=== PATIENT | male | born 1950 | race Caucasian/White ===

== ENCOUNTER 2019-11-19 15:25 | Emergency (ER) | payer MEDICARE, OTHER ==
[2019-11-19] MEDS ORDERED: Aspirin 81 MG Tab.Chew PO ONE (15:35)
--- NOTE | 2019-11-19 15:48 | EDM.PDOC ---
ED HPI GENERAL MEDICAL PROBLEM - General Chief Complaint: Chest Pain Stated Complaint: CHEST PAIN Time Seen by Provider: 11/19/19 15:32 - History of Present Illness INITIAL COMMENTS - FREE TEXT/NARRATIVE: woke up at 1030 am with 7-8/10 left side Chest pain, describes it as an ache, it has decreased some to 5/10, it has been constant. No radiation. No associating symptoms.Hx of heavy smoker, DM, COPD, does not use home oxygen as ordered, family cardiac problems. He took 1.5 full strength ASA at 1030 to help his pain. Onset: Today, Sudden Onset Date: 11/19/19 Onset Time: 10:30 Location: Reports: Chest Quality: Reports: Ache Severity: Moderate Improves with: Reports: None Worsens with: Reports: None Associated Symptoms: Reports: No Other Symptoms Chest Pain Score (Numeric/FACES): 3 - Related Data Allergies Allergy/AdvReac Type Severity Reaction Status Date / Time No Known Allergies Allergy Verified 11/19/19 16:12 Home Meds: Home Meds Aspirin 0.5 tab PO DAILY 11/19/19 [History] Rosuvastatin Calcium 20 mg PO Q48H 11/19/19 [History] atenoloL [Atenolol] 100 mg PO DAILY 11/19/19 [History] hydroCHLOROthiazide [Hydrochlorothiazide] 12.5 mg PO DAILY 11/19/19 [History] lisinopriL [Lisinopril] 30 mg PO DAILY 11/19/19 [History] metFORMIN HCl [Metformin HCl] 1,000 mg PO BID 11/19/19 [History] Past Medical History Cardiovascular History: Reports: High Cholesterol, Hypertension, SOB on Exertion Respiratory History: Reports: COPD, SOB Endocrine/Metabolic History: Reports: Diabetes, Type II Social & Family History - Tobacco Use Smoking Status *Q: Current Every Day Smoker Tobacco Use Within Last Twelve Months: Cigarettes Years of Tobacco use: 40 - Alcohol Use Alcohol Use History: Yes Days Per Week of Alcohol Use Comment: 2-3 drinks per week, history of heavy alocohol use in the past. - Recreational Drug Use Recreational Drug Use: No ED ROS GENERAL - Review of Systems Review Of Systems: See Below Constitutional: Denies: No Symptoms, Fever, Chills, Malaise Respiratory: Reports: No Symptoms, Shortness of Breath, Cough (chronic cough hx of COPD and smoker, small amount of clear phelm. ), Other (chronic SOB, nothing new for SOB). Denies: Wheezing Cardiovascular: Reports: Chest Pain. Denies: Palpitations, Syncope Endocrine: Reports: No Symptoms. Denies: Fatigue GI/Abdominal: Reports: No Symptoms. Denies: Abdominal Pain, Nausea, Vomiting Musculoskeletal: Reports: No Symptoms. Denies: Back Pain Skin: Reports: No Symptoms Neurological: Reports: No Symptoms. Denies: Dizziness, Headache Hematologic/Lymphatic: Reports: Easy Bleeding (on ASA) ED EXAM, GENERAL - Physical Exam Exam: See Below Exam Limited By: No Limitations General Appearance: Alert, WD/WN, No Apparent Distress Throat/Mouth: Normal Inspection, Normal Lips Head: Atraumatic, Normocephalic Neck: Normal Inspection, Supple Respiratory/Chest: No Respiratory Distress Cardiovascular: Normal Peripheral Pulses, Regular Rate, Rhythm, No Murmur, No Rub GI/Abdominal: Normal Bowel Sounds, Soft, Non-Tender, No Abnormal Bruit Back Exam: Normal Inspection Extremities: Normal Inspection, Normal Range of Motion, Non-Tender, Normal Capillary Refill. No: Meg's Sign, Leg Pain Neurological: Alert, Oriented, Normal Cognition, Normal Gait Psychiatric: Normal Affect, Normal Mood Skin Exam: Warm, Dry, Intact. No: Diaphoretic EKG INTERPRETATION EKG Date: 11/19/19 Time: 15:33 (lot of artifact on initial EKG, it was repeated at 1610) Rhythm: NSR Abell: Normal P-Wave: Present QRS: RBBB (incomplete in leads II,III,aVL,aVF) ST-T: Normal QT: Normal Comparison: NA - No Prior EKG Course - Vital Signs Last Recorded V/S: Last Vital Signs Temp 97.2 F 11/19/19 15:51 Pulse 65 11/19/19 17:33 Resp 16 11/19/19 17:33 BP 140/57 L 11/19/19 17:33 Pulse Ox 96 11/19/19 17:33 - Orders/Labs/Meds Labs: Laboratory Tests 11/19/19 11/19/19 11/19/19 Range/Units 15:40 15:40 15:40 WBC 15.19 H (5.00-10.00) 10^3/uL RBC 4.96 (4.50-6.00) 10^6/uL Hgb 14.8 (13.0-17.0) g/dL Hct 44.3 (40.0-52.0) % MCV 89.3 (82.0-92.0) fL MCH 29.8 (27.0-31.0) pg MCHC 33.4 (32.0-36.0) g/dL RDW 12.6 (11.5-14.5) % Plt Count 225 (150-400) 10^3/uL MPV 9.3 (7.4-10.4) fL Immature Gran % (Auto) 0.1 (0.0-5.0) % Neut % (Auto) 80.4 H (50.0-70.0) % Lymph % (Auto) 9.0 L (20.0-40.0) % [place] % (Auto) 9.3 H (2.0-8.0) % Eos % (Auto) 0.8 L (1.0-3.0) % Baso % (Auto) 0.4 (0.0-1.0) % Neut # (Auto) 12.22 H (2.50-7.00) 10^3/uL Lymph # (Auto) 1.36 (1.00-4.00) 10^3/uL [place] # (Auto) 1.41 H (0.10-0.80) 10^3/uL Eos # (Auto) 0.12 (0.10-0.30) 10^3/uL Baso # (Auto) 0.06 (0.00-0.10) 10^3/uL Immature Gran # (Auto) 0.02 (0.00-0.50) 10^3/uL PT 10.1 (9.2-11.2) SEC INR 1.0 (0.9-1.1) APTT (22.8-31.4) SEC D-Dimer, Quantitative (<400) ng/mL Sodium 136 (136-145) mmol/L Potassium 3.8 (3.3-5.3) mmol/L Chloride 98 (98-115) mmol/L Carbon Dioxide 29.7 (21.0-32.0) mmol/L Anion Gap 12.1 (5-15) mmol/L BUN 8 (6-25) mg/dL Creatinine 0.74 (0.51-1.17) mg/dL Est Cr Clr Drug Dosing 88.58 mL/min Estimated GFR (MDRD) > 60 mL/min Glucose 203 H (75 - 99) mg/dL Calcium 8.9 (8.7-10.3) mg/dL Total Bilirubin 0.4 (0.2-1.0) mg/dL AST 16 (15-37) U/L ALT 13 (12-78) U/L Alkaline Phosphatase 66 (46-116) IU/L Troponin I 0.09 H* (0.00-0.070) ng/mL B-Natriuretic Peptide (0-100) pg/mL Total Protein 7.5 (6.4-8.2) g/dL Albumin 3.58 (3.00-4.80) g/dL 11/19/19 11/19/19 11/19/19 Range/Units 15:40 16:40 16:40 WBC (5.00-10.00) 10^3/uL RBC (4.50-6.00) 10^6/uL Hgb (13.0-17.0) g/dL Hct (40.0-52.0) % MCV (82.0-92.0) fL MCH (27.0-31.0) pg MCHC (32.0-36.0) g/dL RDW (11.5-14.5) % Plt Count (150-400) 10^3/uL MPV (7.4-10.4) fL Immature Gran % (Auto) (0.0-5.0) % Neut % (Auto) (50.0-70.0) % Lymph % (Auto) (20.0-40.0) % [place] % (Auto) (2.0-8.0) % Eos % (Auto) (1.0-3.0) % Baso % (Auto) (0.0-1.0) % Neut # (Auto) (2.50-7.00) 10^3/uL Lymph # (Auto) (1.00-4.00) 10^3/uL [place] # (Auto) (0.10-0.80) 10^3/uL Eos # (Auto) (0.10-0.30) 10^3/uL Baso # (Auto) (0.00-0.10) 10^3/uL Immature Gran # (Auto) (0.00-0.50) 10^3/uL PT (9.2-11.2) SEC INR (0.9-1.1) APTT 26.5 (22.8-31.4) SEC D-Dimer, Quantitative < 100 (<400) ng/mL Sodium (136-145) mmol/L Potassium (3.3-5.3) mmol/L Chloride (98-115) mmol/L Carbon Dioxide (21.0-32.0) mmol/L Anion Gap (5-15) mmol/L BUN (6-25) mg/dL Creatinine (0.51-1.17) mg/dL Est Cr Clr Drug Dosing mL/min Estimated GFR (MDRD) mL/min Glucose (75 - 99) mg/dL Calcium (8.7-10.3) mg/dL Total Bilirubin (0.2-1.0) mg/dL AST (15-37) U/L ALT (12-78) U/L Alkaline Phosphatase (46-116) IU/L Troponin I (0.00-0.070) ng/mL B-Natriuretic Peptide 45 (0-100) pg/mL Total Protein (6.4-8.2) g/dL Albumin (3.00-4.80) g/dL Meds: Medications Discontinued Medications Generic Name Dose Route Start Last Admin Trade Name Freq PRN Reason Stop Dose Admin Aspirin 324 mg 11/19/19 15:35 11/19/19 15:50 Aspirin PO 11/19/19 15:36 Not Given ONETIME ONE Heparin Sodium (Porcine) 4,000 units 11/19/19 17:13 11/19/19 20:18 Heparin Sodium IVPUSH 11/19/19 17:14 Not Given .BOLUS ONE Heparin Sodium (Porcine) 4,000 units 11/19/19 17:10 11/19/19 17:15 Heparin Sodium IVPUSH 11/19/19 17:11 4,000 units ONETIME ONE Administration Heparin Sodium/Dextrose 250 mls @ 1,020.58 mls/hr 11/19/19 17:15 IV TITRATE ROEL Protocol 1,000 UNITS/KG/HR Heparin Sodium/Dextrose 250 mls @ 10 mls/hr 11/19/19 17:09 08/17/20 17:24 IV 11/20/19 18:08 1,000 units/hr NOW STA 10 mls/hr Administration Protocol 1,000 UNITS/HR Sodium Chloride 20 mls @ 20 mls/hr 11/19/19 18:00 Normal Saline IV ASDIRECTED ROEL Sodium Chloride 1,000 mls @ 20 mls/hr 11/19/19 18:00 Normal Saline IV ASDIRECTED ROEL Sodium Chloride Confirm 11/19/19 17:52 11/19/19 20:14 Normal Saline Administered 11/19/19 17:53 Not Given Dose 1,000 mls @ as directed .ROUTE .STK-MED ONE Nitroglycerin 0.4 mg 11/19/19 15:48 11/19/19 16:17 Nitrostat SL 0.4 mg Q5M PRN Administration Chest Pain - Re-Assessments/Exams Free Text/Narrative Re-Assessment/Exam: 11/19/19 15:51- labs drawn, xray at beside, EKg was completed at 1533. no acute signs of STEMI 11/19/19 16:26- received positive troponin level from lab, trop 0.09, other labs still pending. EKG was repeated at 1610. no changes 11/19/19 16:47- d dimer neg. CP is 1/10 after second dose, very mild ache, when he doesn't think of it, its gone. I visited with oncall PCP, Dr. Banks, due to elevated troponin, high risk for ACS due to his history and clinical prese ntation, patient referred to [facility] for further expert evaluation and management. Patient agrees with transfer. i called one call, gave report to hospitalist at [facility]. Free Text/Narrative Re-Assessment/Exam: 11/19/19 16:27 second dose of nitro SL given, chest pain remains the same 1/10, compares it to a toothache, BP 147/70 HR 67. 11/19/19 17:19 discussed Rehan's case with accepting hospitalist at [facility], waiting on a bed before transfer, heparin bolus given 4,000 units and gtt started at 1,000 units per hour, no need to give ASA, patient took 1.5 tablets of 325 mg ASA, NS TKO, 2 L NC given, VSS, patient's pain is 1/10 mild dull ache left Chest, no associating symptoms. 11/19/19 17:43 received a room number now, EMS were notified, patient states ache is 2/10, like a "tooth ache". report was called to [facility]. Departure - Departure Time of Disposition: 17:05 (dc/ transfer to [facility]) Disposition: DC/Tfer to [facility] Preliminary Cause of *Q: Sepsis & Multi System Organ Failure Reason for Transfer *Q: Other Condition: Serious Clinical Impression: Chest pain, NSTEMI (non-ST elevated myocardial infarction) Referrals: Deana Butts MD [Primary Care Provider] - MLP Sign Off - Signature Requirements MLP Sign Off: Yes ED Communication - Discussed Case With (1) Discussed Case With (1): Other Provider Person/s Notified (1): Dr. Banks his PCP - Problem List & Annotations (1) Chest pain SNOMED Code(s): 10325925 Code(s): R07.9 - CHEST PAIN, UNSPECIFIED Status: Acute
--- NOTE | 2019-11-19 15:57 | CR ---
[id number] RAD/RAD Chest PA or AP 1V EXAM: RAD Chest PA or AP 1V INDICATION: CP. COMPARISON: July 10, 2019. DISCUSSION: Cardiomediastinal silhouette is normal in size and contour. No infiltrate, effusion, pneumothorax, or edema. IMPRESSION: No acute cardiopulmonary abnormality. Kain Gay DO 11/19/19 1556 Thank you for allowing us to participate in the care of your patient.
[2019-11-19] MEDS: Nitroglycerin 0.4 MG Tab.SL SL PRN ×2 (15:58→16:17)
[2019-11-19 16:22] LABS: ANION GAP 12.1 mmol/L (5-15); CHLORIDE,CL 98 mmol/L (98-115); SODIUM,NA 136 mmol/L (136-145)
[2019-11-19] MEDS ORDERED: Heparin Sodium/D5W 250 ML IV STA (17:09)
[2019-11-19] MEDS ORDERED: Heparin Sodium 5,000 Units/ML Vial IVPUSH ONE (17:10)
[2019-11-19] MEDS ORDERED: Heparin Sodium/D5W 250 ML IV SCH (17:15)
[2019-11-19] MEDS: Heparin Sodium 5,000 Units/ML Vial IVPUSH ONE ×2 (17:15→20:18)
[2019-11-19] MEDS ORDERED: Sodium Chloride 0.9% 1,000 ML ONE (17:52)
[2019-11-19] MEDS ORDERED: Sodium Chloride 0.9% 1,000 ML IV SCH (18:00)
[2019-11-19] MEDS ORDERED: Sodium Chloride 0.9% 20 ML IV SCH (18:00)
== END 2019-11-19 18:15 | disposition critical access hospital (66) ==
LOC: KA.ED 15:25
DX: I21.4 Non-ST elevation (NSTEMI) myocardial infarction (principal); I10 Essential (primary) hypertension; J44.9 Chronic obstructive pulmonary disease, unspecified; E11.9 Type 2 diabetes mellitus without complications; F17.210 Nicotine dependence, cigarettes, uncomplicated; Z79.82 Long term (current) use of aspirin; Z79.899 Other long term (current) drug therapy; I45.10 Unspecified right bundle-branch block
CPT/HCPCS: 36415; 71045; 80053; 83880; 84484; 85025; 85379; 85610; 85730; 93005; 96365; 96375; 99284; 99285-25; A9270-GY; J1644

== ENCOUNTER 2020-07-01 07:57 | Day surgery (SDC) | payer MEDICARE, OTHER ==
[2020-07-01] MEDS: Sodium Chloride 0.9% 10 ML Syringe FLUSH PRN (08:18)
[2020-07-01] MEDS: Lactated Ringers 1,000 ML IV SCH (08:18)
[2020-07-01] MEDS: Albuterol 0.083% 2.5 MG/3 ML Neb Soln NEB ONE (08:54)
[2020-07-01] MEDS ORDERED: Midazolam 1 MG/ML 2 ML SDV ONE (08:58)
[2020-07-01] MEDS ORDERED: Glycopyrrolate 0.2 MG/ML SDV ONE ×2 (08:58)
[2020-07-01] MEDS ORDERED: Propofol 200 MG/20 ML SDV ONE (08:58)
[2020-07-01] MEDS ORDERED: Lidocaine 2% 5 ML SDV ONE (09:03)
--- NOTE | 2020-07-01 09:12 | PCM.PN ---
- General Info Date of Service: 07/01/20 - Review of Systems Systems Review Comment:: 69-year-old male with history of upper abdominal pain here for EGD. He is medically stable to proceed today. His recent history and physical is reviewed and no significant changes are noted. I have discussed the proposed EGD with the patient. He agrees to proceed accepting risks. - Patient Data Vitals - Most Recent: Last Vital Signs Temp 96.7 F L 07/01/20 08:07 Pulse 58 L 07/01/20 09:02 Resp 18 07/01/20 08:07 BP 171/70 H 07/01/20 09:02 Pulse Ox 92 L 07/01/20 09:00 Weight - Most Recent: 99.79 kg Med Orders - Current: Current Medications Lactated Ringer's (Ringers, Lactated) 1,000 mls @ 50 mls/hr IV ASDIRECTED ROEL Last Admin: 07/01/20 08:18 Dose: 50 mls/hr Documented by: Sodium Chloride (Sodium Chloride 0.9% 10 Ml Syringe) 10 ml FLUSH Q8HR PRN PRN Reason: keep vein open Last Admin: 07/01/20 08:18 Dose: 10 ml Documented by: Discontinued Medications Albuterol (Albuterol 0.083% 2.5 Mg/3 Ml Neb Soln) 2.5 mg NEB ONETIME ONE Stop: 07/01/20 08:45 Last Admin: 07/01/20 08:54 Dose: 2.5 mg Documented by: Glycopyrrolate (Glycopyrrolate 0.2 Mg/Ml Sdv) Confirm Administered Dose 0.2 mg .ROUTE .STK-MED ONE Stop: 07/01/20 08:59 Glycopyrrolate (Glycopyrrolate 0.2 Mg/Ml Sdv) Confirm Administered Dose 0.4 mg .ROUTE .STK-MED ONE Stop: 07/01/20 08:59 Lidocaine (Lidocaine 2% 5 Ml Sdv) Confirm Administered Dose 5 ml .ROUTE .STK-MED ONE Stop: 07/01/20 09:04 Midazolam HCl (Midazolam 1 Mg/Ml 2 Ml Sdv) Confirm Administered Dose 2 mg .ROUTE .STK-MED ONE Stop: 07/01/20 08:59 Propofol (Propofol 200 Mg/20 Ml Sdv) Confirm Administered Dose 200 mg .ROUTE .STK-MED ONE Stop: 07/01/20 08:59 Sepsis Event Note - Focused Exam Vital Signs: Vital Signs Temp Pulse Resp BP Pulse Ox Pulse Ox 07/01/20 09:02 58 L 171/70 H 07/01/20 09:00 63 92 L 07/01/20 08:51 181/78 H 07/01/20 08:07 96.7 F L 72 18 199/79 H 92 L - Problem List Review Problem List Initiated/Reviewed/Updated: Yes - My Orders Last 24 Hours: My Active Orders 06/30/20 13:36 Resuscitation Status Routine 07/01/20 08:00 Peripheral IV Care [RC] . DIRECTED Nothing Per Oral Diet [DIET] Lactated Ringers [Ringers, Lactated] 1,000 ml IV ASDIRECTED Sodium Chloride 0.9% [Saline Flush] 10 ml FLUSH Q8HR PRN Peripheral IV Insertion Adult [OM.PC] Routine 07/01/20 08:30 Patient to Empty Bladder [RC] ASDIRECTED 07/01/20 09:00 Verify Patient Consent Obtain [RC] ASDIRECTED - Assessment Assessment:: Abdominal pain - Plan Plan:: EGD
--- NOTE | 2020-07-01 09:39 | PCM.OPNOTE ---
- General Post-Op/Procedure Note Date of Surgery/Procedure: 07/01/20 Operative Procedure(s): EGD with biopsy Findings: Normal-appearing esophagus stomach and duodenum Pre Op Diagnosis: Abdominal pain Post-Op Diagnosis: Same Anesthesia Technique: MAC Primary Surgeon: David Hill Pathology: Biopsies of stomach and duodenum EBL in mLs: 3 Complications: None Condition: Good
--- NOTE | 2020-07-01 11:36 | OR ---
DATE OF SURGERY: 07/01/2020 SURGEON: David Hill MD PREOPERATIVE DIAGNOSIS: Upper abdominal pain. POSTOPERATIVE DIAGNOSIS: Normal upper endoscopy. OPERATION PERFORMED: Esophagogastroduodenoscopy with biopsy. INDICATIONS FOR SURGERY: This 69-year-old male had an episode of severe upper abdominal pain several days ago. The pain has improved, although there is still mild soreness in this area. Diagnostic upper endoscopy is planned. FINDINGS: The lining of the patient's esophagus, stomach, and duodenum appeared normal during the exam. No visible signs of ulcers, inflammation, or anatomic variation was noted. DESCRIPTION OF PROCEDURE: The patient was taken to the operating room. He was given intravenous sedation and his throat was topically anesthetized. The Olympus gastroscope was then advanced through a mouth guard into the oral cavity. Under direct visualization, the scope was then carefully advanced down into the esophagus and then down through the esophagus, stomach, and into the duodenum where examination to the fourth portion was performed. Careful examination of the duodenum was performed and no abnormalities were noted. Random biopsies of the duodenal mucosa were taken. The scope was withdrawn back into the stomach where full examination including retroflexed examination of the fundus was performed. Random biopsies of the antrum were taken to rule out H pylori. The GE junction and esophagus were re-examined as the scope was removed, and after the scope had been withdrawn, the patient was taken from the operating room in satisfactory condition. ESTIMATED BLOOD LOSS: 3 mL. COMPLICATIONS: None. PROGNOSIS: Good. /[id number]/MODL
== END 2020-07-01 10:45 | disposition home or self-care (01) ==
LOC: KA.SDS 07:57
PROVIDERS: ATTEND Surgery
DX: K29.80 Duodenitis without bleeding (principal); K31.89 Other diseases of stomach and duodenum; F17.210 Nicotine dependence, cigarettes, uncomplicated; Z79.82 Long term (current) use of aspirin; Z79.899 Other long term (current) drug therapy; Z79.84 Long term (current) use of oral hypoglycemic drugs; Z98.890 Other specified postprocedural states
CPT/HCPCS: 00731; 88305; J2250; J2704; J3490; J7120; J7613-GY

== ENCOUNTER 2020-12-04 08:56 | Emergency (ER) | payer MEDICARE, OTHER ==
[2020-12-04] MEDS ORDERED: Albuterol/Ipratropium 3.0-0.5 MG/3 ML Neb Soln ONE (09:24)
--- NOTE | 2020-12-04 09:38 | EDM.PDOC ---
ED HPI GENERAL MEDICAL PROBLEM - General Stated Complaint: SOB,COUGH Time Seen by Provider: 12/04/20 09:21 Source of Information: Reports: Patient History Limitations: Reports: No Limitations - History of Present Illness INITIAL COMMENTS - FREE TEXT/NARRATIVE: Patient presents with dyspnea, chest pain and cough. He says the chest pain (low mid chest) has been 2-3 days and worst was last evening until [id number] this morning. He is actually feeling a lot better the last 4-5 hours. He mostly just feels like there is congestion in his lungs that needs to come up. He has COPD so always has dyspnea but it is worse last few days too. He has nebs and inhalers at home but doesn't use them. He had home oxygen for awhile but didn't use it so it was taken. He says how he feels now reminds him of "w alking pneumonia" he had 20 years ago and also the MT he had a year ago; had a stent at that time too. Denies pain in neck, jaw, arms. He has smoked for over 50 years and still smokes 4-5 cigarettes a day. - Related Data Allergies Allergy/AdvReac Type Severity Reaction Status Date / Time No Known Drug Allergies Allergy Other Verified 12/04/20 09:37 Home Meds: Home Meds Rosuvastatin Calcium 20 mg PO DAILY 11/19/19 [History] atenoloL [Atenolol] 100 mg PO DAILY 11/19/19 [History] hydroCHLOROthiazide [Hydrochlorothiazide] 12.5 mg PO DAILY 11/19/19 [History] metFORMIN HCl [Metformin HCl] 1,000 mg PO BID 11/19/19 [History] Aspirin [Aspirin EC] 81 mg PO DAILY 06/16/20 [History] Clopidogrel Bisulfate [Plavix] 75 mg PO DAILY 06/16/20 [History] Nitroglycerin 0.4 mg SL ASDIRECTED PRN 06/16/20 [History] [place]-3/DHA/Epa/Fish Oil [[place]-3 EC Softgel] 1,200 mg PO DAILY 06/16/20 [History] Ubidecarenone [Co Q-10] 1 tab PO ASDIRECTED 06/16/20 [History] Vitamin B Complex 1 tab PO DAILY 06/16/20 [History] lisinopriL [Lisinopril] 40 mg PO DAILY 06/16/20 [History] traMADol [Ultram] 50 mg PO Q6H PRN 06/30/20 [History] Fluticasone Propion/Salmeterol [Fluticasone-Salmeterol 250-50] 1 inh INH BID 12/04/20 [History] amLODIPine Besylate [Amlodipine Besylate] 5 mg PO DAILY 12/04/20 [History] Past Medical History HEENT History: Reports: None Cardiovascular History: Reports: High Cholesterol, Hypertension, SOB on Exertion Respiratory History: Reports: COPD, SOB Gastrointestinal History: Reports: None Genitourinary History: Reports: None Musculoskeletal History: Reports: None Neurological History: Reports: None Psychiatric History: Reports: None Endocrine/Metabolic History: Reports: Diabetes, Type II Hematologic History: Reports: None Immunologic History: Reports: None Oncologic (Cancer) History: Reports: None Dermatologic History: Reports: None - Infectious Disease History Infectious Disease History: Reports: Chicken Pox - Past Surgical History Head Surgeries/Procedures: Reports: None HEENT Surgical History: Reports: None Cardiovascular Surgical History: Reports: None Respiratory Surgical History: Reports: None GI Surgical History: Reports: Colonoscopy, EGD Male Surgical History: Reports: None Neurological Surgical History: Reports: None Musculoskeletal Surgical History: Reports: None Social & Family History - Caffeine Use Caffeine Use: Reports: Coffee Other Caffeine Use: 10 cups of coffee a day ED ROS GENERAL - Review of Systems Review Of Systems: See Below Constitutional: Denies: Fever, Weakness, Diaphoresis HEENT: Denies: Ear Pain, Throat Pain, Vision Change Respiratory: Reports: Shortness of Breath, Cough Cardiovascular: Reports: Chest Pain. Denies: Lightheadedness, Syncope GI/Abdominal: Denies: Abdominal Pain, Diarrhea, Nausea, Vomiting : Denies: Dysuria Musculoskeletal: Denies: Neck Pain, Shoulder Pain, Arm Pain, Back Pain Skin: Denies: Cyanosis, Jaundice, Mottled, Pallor, Diaphoresis Neurological: Denies: Confusion, Dizziness, Headache, Seizure, Syncope, Trouble Speaking, Difficulty Walking Psychiatric: Denies: Agitation, Anxiety ED EXAM, GENERAL - Physical Exam Exam: See Below Exam Limited By: No Limitations General Appearance: Alert, WD/WN, No Apparent Distress Eye Exam: Bilateral Eye: EOMI, Normal Inspection, PERRL Ears: Normal External Exam, Hearing Grossly Normal Nose: Normal Inspection, No Blood Throat/Mouth: Normal Inspection, Normal Lips, Normal Voice, No Airway Compromise Head: Atraumatic, Normocephalic Neck: Normal Inspection, Full Range of Motion Respiratory/Chest: Wheezing (inspiratory and expiratory throughout), Prolonged Expiration, Other (maintaining 92% on RA without tachpynea) Cardiovascular: Regular Rate, Rhythm, No Murmur GI/Abdominal: Non-Tender, Distended (mild) Back Exam: Normal Inspection, Full Range of Motion. No: CVA Tenderness (L), CVA Tenderness (R) Extremities: Normal Inspection, Normal Range of Motion Neurological: Alert, Oriented, Normal Cognition, No Motor/Sensory Deficits Psychiatric: Normal Affect, Normal Mood Skin Exam: Warm, Dry, Intact, Normal Color, No Rash Course - Vital Signs Last Recorded V/S: Last Vital Signs Temp 97.9 F 12/04/20 09:05 Pulse 65 12/04/20 10:45 Resp 11 L 12/04/20 10:45 BP 132/60 12/04/20 10:45 Pulse Ox 90 L 12/04/20 10:45 - Orders/Labs/Meds Orders: Active Orders 24 hr Category Date Time Status EKG 12 Lead [EK] Stat Ther 12/04/20 09:29 Ordered Labs: Laboratory Tests 12/04/20 12/04/20 12/04/20 Range/Units 09:10 09:10 11:14 WBC 14.15 H (5.00-10.00) 10^3/uL RBC 4.77 (4.50-6.00) 10^6/uL Hgb 13.3 (13.0-17.0) g/dL Hct 40.8 (40.0-52.0) % MCV 85.5 (82.0-92.0) fL MCH 27.9 (27.0-31.0) pg MCHC 32.6 (32.0-36.0) g/dL RDW 14.7 H (11.5-14.5) % Plt Count 279 (150-400) 10^3/uL MPV 9.2 (7.4-10.4) fL Immature Gran % (Auto) 0.2 (0.0-5.0) % Neut % (Auto) 67.6 (50.0-70.0) % Lymph % (Auto) 12.5 L (20.0-40.0) % Sully % (Auto) 19.0 H (2.0-8.0) % Eos % (Auto) 0.3 L (1.0-3.0) % Baso % (Auto) 0.4 (0.0-1.0) % Neut # (Auto) 9.56 H (2.50-7.00) 10^3/uL Lymph # (Auto) 1.77 (1.00-4.00) 10^3/uL Sully # (Auto) 2.69 H (0.10-0.80) 10^3/uL Eos # (Auto) 0.04 L (0.10-0.30) 10^3/uL Baso # (Auto) 0.06 (0.00-0.10) 10^3/uL Immature Gran # (Auto) 0.03 (0.00-0.50) 10^3/uL Sodium 131 L (136-145) mmol/L Potassium 4.1 (3.5-5.1) mmol/L Chloride 92 L (98-107) mmol/L Carbon Dioxide 28.9 (21.0-32.0) mmol/L Anion Gap 14.2 (5-15) mmol/L BUN 13 (7-18) mg/dL Creatinine 0.99 (0.51-1.17) mg/dL Est Cr Clr Drug Dosing 65.25 mL/min Estimated GFR (MDRD) > 60 mL/min Glucose 126 (70-140) mg/dL Calcium 9.1 (8.7-10.3) mg/dL Total Bilirubin 0.5 (0.2-1.0) mg/dL AST 16 (15-37) U/L ALT 10 L (14-63) U/L Alkaline Phosphatase 84 (46-116) U/L Troponin I High Sens 6.700 (0-76.000) pg/mL B-Natriuretic Peptide 114 H (0-100) pg/mL Total Protein 7.9 (6.4-8.2) g/dL Albumin 3.29 L (3.40-5.00) g/dL SARS CoV-2 RNA Rapid NARAYAN Negative (NEGATIVE) Meds: Medications Discontinued Medications Generic Name Dose Route Start Last Admin Trade Name Freq PRN Reason Stop Dose Admin Albuterol/Ipratropium Confirm 12/04/20 09:24 12/04/20 09:51 Albuterol/Ipratropium 3.0-0.5 Mg/3 Ml Neb Soln Administered 12/04/20 09:25 Not Given Dose 3 ml .ROUTE .STK-MED ONE Albuterol/Ipratropium 3 ml 12/04/20 09:49 12/04/20 09:50 Albuterol/Ipratropium 3.0-0.5 Mg/3 Ml Neb Soln NEB 12/04/20 09:50 3 ml ONETIME ONE Administration - Re-Assessments/Exams Free Text/Narrative Re-Assessment/Exam: 12/04/20 10:44 WBC elevated. CXR doesn't show a definite infiltrate. Trop and other labs normal. EKG looks to have no significant change from previous. Computer interpretation reads ST elevation but there isn't actual criteria for that. With low normal troponin more than 12 hours after symptoms started and even 4-5 hours after symptoms improved, I feel we can reliably ruleout acute MT at this time. Patient is feeling quite a bit better after the DuoNeb here. We discussed findings and recommendations. Will treat the presumed early pneumonia/bronchitis with Z-pack. He will do his DuoNeb at home twice daily. He will follow up with Dr. Moreno next week to recheck and determine any other changes based on how he is doing at that time. He is somewhat reluctant to restart his inhalers, especially the expensive one. So for now will just add the DuoNeb and Z-pack and recheck in a week. 12/04/20 12:28 Covid negative. Patient stable at discharge. Departure - Departure Time of Disposition: 10:56 Disposition: Home, Self-Care 01 Condition: Good Clinical Impression: COPD exacerbation - Discharge Information Instructions: Chronic Obstructive Pulmonary Disease Exacerbation, [id number] Referrals: Deana Butts MD [Primary Care Provider] - Forms: ED Department Discharge Additional Instructions: Drink 8 cups of water daily. Take the Z-pack as directed. Use your DuoNeb morning and night. If you don't feel the improvement you e xperienced after the DuoNeb here in ER, call your PCP for refills on the DuoNeb vials. Follow up with your PCP next week for recheck. If worsening, recheck in clinic or ER [facility]. Sepsis Event Note (ED) - Focused Exam Vital Signs: Vital Signs Temp Pulse Resp BP Pulse Ox 12/04/20 10:45 65 11 L 132/60 90 L 12/04/20 10:44 70 12/04/20 10:30 64 12 131/60 90 L 12/04/20 10:15 64 11 L 120/53 L 90 L 12/04/20 10:00 70 9 L 128/59 L 96 12/04/20 09:45 70 16 135/63 92 L 12/04/20 09:30 71 15 139/63 93 L 12/04/20 09:15 70 13 124/58 L 91 L 12/04/20 09:05 97.9 F 80 17 162/75 H 93 L 12/04/20 09:00 74 14 144/65 H 93 L - My Orders Last 24 Hours: My Active Orders 12/04/20 09:29 EKG 12 Lead [EK] Stat - Assessment/Plan Last 24 Hours: My Active Orders 12/04/20 09:29 EKG 12 Lead [EK] Stat
[2020-12-04 09:46] LABS: ANION GAP 14.2 mmol/L (5-15); CHLORIDE,CL 92 mmol/L (98-107); SODIUM,NA 131 mmol/L (136-145)
[2020-12-04] MEDS ORDERED: Albuterol/Ipratropium 3.0-0.5 MG/3 ML Neb Soln NEB ONE (09:49)
--- NOTE | 2020-12-04 09:59 | CR ---
[id number] RAD/RAD Chest PA or AP 1V EXAM: FRONTAL CHEST INDICATION: DYSPNEA, COUGH COMPARISON: November 19, 2019. DISCUSSION: Underlying chronic obstructive pulmonary disease is suggested. Mild bibasilar scarring with no definite infiltrates. Chronic left rib fractures have not appreciably changed. No effusions. Normal heart size. IMPRESSION: 1. No acute findings. Mohamud Reyna MD 12/04/20 0958 Thank you for allowing us to participate in the care of your patient.
== END 2020-12-04 11:20 | disposition home or self-care (01) ==
LOC: KA.ED 08:56
DX: J44.1 Chronic obstructive pulmonary disease with (acute) exacerbation (principal); E78.00 Pure hypercholesterolemia, unspecified; I10 Essential (primary) hypertension; E11.9 Type 2 diabetes mellitus without complications; Z79.899 Other long term (current) drug therapy; Z20.822 Contact with and (suspected) exposure to COVID-19
CPT/HCPCS: 36415; 71045; 80053; 83880; 84484; 85025; 93005; 94640; 99284; 99285-25; J7620-GY; U0002

== ENCOUNTER 2023-01-11 07:59 | Day surgery (SDC) | payer MEDICARE, OTHER ==
[2023-01-11] MEDS ORDERED: Sodium Chloride 0.9% 10 ML Syringe FLUSH PRN (08:00)
[2023-01-11] MEDS ORDERED: Sodium Chloride 0.9% 1,000 ML IV SCH (08:00)
[2023-01-11] MEDS ORDERED: Albuterol/Ipratropium 3.0-0.5 MG/3 ML Neb Soln NEB ONE (08:38)
[2023-01-11] MEDS ORDERED: Propofol 200 MG/20 ML SDV ONE (08:47)
[2023-01-11] MEDS ORDERED: Midazolam 1 MG/ML 2 ML SDV ONE (08:47)
[2023-01-11] MEDS ORDERED: Glycopyrrolate 0.2 MG/ML SDV ONE (08:48)
== END 2023-01-11 11:10 | disposition home or self-care (01) ==
LOC: KA.SDS 07:59
PROVIDERS: ATTEND Surgery
DX: D64.9 Anemia, unspecified (principal); K21.00 Gastro-esophageal reflux disease with esophagitis, without bleeding; K57.30 Diverticulosis of large intestine without perforation or abscess without bleeding; K31.89 Other diseases of stomach and duodenum; K22.89 Other specified disease of esophagus; Z86.010 Personal history of colon polyps; Z79.82 Long term (current) use of aspirin; Z79.84 Long term (current) use of oral hypoglycemic drugs; Z79.899 Other long term (current) drug therapy
CPT/HCPCS: 00813; 82947; 94640; J2250; J2704; J3490; J7030; J7620-GY

== ENCOUNTER 2023-05-07 18:52 | Inpatient (IN) | payer MEDICARE, OTHER ==
[2023-05-07 19:27] LABS: BASOPHILS ABSOLUTE AUTO 0.03 10^3/uL (0.00-0.10); BASOPHILS PERCENT AUTO 0.3 % (0.0-1.0); EOSINOPHILS ABSOLUTE AUTO 0.04 10^3/uL (0.10-0.30); EOSINOPHILS PERCENT AUTO 0.4 % (1.0-3.0); HEMATOCRIT 28.9 % (40.0-52.0); HEMOGLOBIN 9.6 g/dL (13.0-17.0); IMMATURE GRAN ABSOLUTE AUTO 0.03 10^3/uL (0.00-0.50); IMMATURE GRAN PERCENT AUTO 0.3 % (0.0-5.0); LYMPHOCYTES ABSOLUTE AUTO 0.57 10^3/uL (1.00-4.00); LYMPHOCYTES PERCENT AUTO 5.4 % (20.0-40.0); MEAN CORPUSCULAR HEMOGLOBIN 28.9 pg (27.0-31.0); MEAN CORPUSCULAR HGB CONC 33.2 g/dL (32.0-36.0); MEAN PLATELET VOLUME 8.7 fL (7.4-10.4); MONOCYTES ABSOLUTE AUTO 1.28 10^3/uL (0.10-0.80); NEUTROPHILS PERCENT AUTO 81.6 % (50.0-70.0); PLATELET COUNT,PLT 220 10^3/uL (150-400); RED BLOOD CELL COUNT 3.32 10^6/uL (4.50-6.00); WHITE BLOOD CELL COUNT,WBC 10.65 10^3/uL (5.00-10.00)
[2023-05-07] MEDS: Sodium Chloride 0.9% 1,000 ML ONE (19:28)
[2023-05-07] MEDS: Sodium Chloride 0.9% 1,000 ML IV ONE (19:29)
[2023-05-07 19:43] LABS: ALBUMIN 2.85 g/dL (3.40-5.00); ANION GAP 11.6 mmol/L (5-15); BILIRUBIN TOTAL 0.6 mg/dL (0.2-1.0); CALCIUM 8.9 mg/dL (8.7-10.3); CARBON DIOXIDE,CO2 32.9 mmol/L (21.0-32.0); CREATININE 1.01 mg/dL (0.51-1.17); EST CRCL DRUG DOSING (CG) 62.08 mL/min; POTASSIUM,K 3.5 mmol/L (3.5-5.1); PROTEIN TOTAL,TP 6.8 g/dL (6.4-8.2)
[2023-05-07] MEDS: Ketorolac 30 MG/ML SDV IVPUSH ONE (20:03)
[2023-05-07] MEDS: Acetaminophen/HYDROcodone 325-10 MG Tab PO ONE (20:07)
[2023-05-07] MEDS: HYDROmorphone 1 MG/ML Syringe IVPUSH ONE (21:15)
[2023-05-07] MEDS: Nicotine 14 MG/24 Hr Patch TRDERM SCH (23:21)
[2023-05-07] MEDS ORDERED: Bisacodyl 5 MG Tab PO PRN ×2 (23:36→23:46)
[2023-05-07] MEDS ORDERED: Magnesium Hydroxide 400 MG/5 ML Susp 30 ML Cup PO PRN ×2 (23:36→23:46)
[2023-05-07] MEDS ORDERED: Acetaminophen 325 MG Tab PO PRN (23:36)
[2023-05-07] MEDS ORDERED: Ondansetron 4 MG/2 ML SDV IV PRN ×2 (23:36→23:46)
[2023-05-07] MEDS ORDERED: Docusate Sodium 100 MG Cap PO PRN ×2 (23:36→23:46)
[2023-05-07] MEDS ORDERED: Acetaminophen/HYDROcodone 325-5 MG Tab PO PRN (23:36)
[2023-05-07] MEDS ORDERED: HYDROmorphone 1 MG/ML Syringe IVPUSH PRN (23:43)
[2023-05-08] MEDS ORDERED: Acetaminophen 325 MG Tab PO PRN
[2023-05-08] MEDS: Tamsulosin 0.4 MG Cap.ER PO ONE (00:56)
[2023-05-08] MEDS: Melatonin 3 MG Tab PO PRN (02:42)
[2023-05-08] MEDS: HYDROmorphone 1 MG/ML Syringe IVPUSH PRN (02:47)
[2023-05-08] MEDS: Nicotine 21 MG/24 Hr Patch TRDERM SCH (03:51)
[2023-05-08 07:14] LABS: BASOPHILS ABSOLUTE AUTO 0.04 10^3/uL (0.00-0.10); BASOPHILS PERCENT AUTO 0.6 % (0.0-1.0); EOSINOPHILS ABSOLUTE AUTO 0.07 10^3/uL (0.10-0.30); HEMATOCRIT 25.6 % (40.0-52.0); HEMOGLOBIN 8.5 g/dL (13.0-17.0); IMMATURE GRAN ABSOLUTE AUTO 0.01 10^3/uL (0.00-0.50); IMMATURE GRAN PERCENT AUTO 0.1 % (0.0-5.0); LYMPHOCYTES ABSOLUTE AUTO 1.19 10^3/uL (1.00-4.00); LYMPHOCYTES PERCENT AUTO 16.6 % (20.0-40.0); MEAN CORPUSCULAR HEMOGLOBIN 29.3 pg (27.0-31.0); MEAN CORPUSCULAR HGB CONC 33.2 g/dL (32.0-36.0); MEAN CORPUSCULAR VOLUME 88.3 fL (82.0-92.0); MEAN PLATELET VOLUME 8.2 fL (7.4-10.4); MONOCYTES ABSOLUTE AUTO 1.19 10^3/uL (0.10-0.80); MONOCYTES PERCENT AUTO 16.6 % (2.0-8.0); NEUTROPHILS ABSOLUTE AUTO 4.67 10^3/uL (2.50-7.00); NEUTROPHILS PERCENT AUTO 65.1 % (50.0-70.0); PLATELET COUNT,PLT 196 10^3/uL (150-400); RED CELL DISTRIBUTION WIDTH 13.1 % (11.5-14.5); WHITE BLOOD CELL COUNT,WBC 7.17 10^3/uL (5.00-10.00)
[2023-05-08 07:28] LABS: ANION GAP 7.9 mmol/L (5-15); CALCIUM 8.4 mg/dL (8.7-10.3); CARBON DIOXIDE,CO2 34.7 mmol/L (21.0-32.0); CREATININE 1.06 mg/dL (0.51-1.17); EST CRCL DRUG DOSING (CG) 57.16 mL/min; POTASSIUM,K 3.6 mmol/L (3.5-5.1)
[2023-05-08 07:34] LABS: PROTHROMBIN TIME 10.9 SEC (9.3-12.2)
[2023-05-08] MEDS ORDERED: Non-Formulary Medication 1 Each (Ubidecarenone [Co Q-10] 100 MG Capsule) PO SCH (09:00)
[2023-05-08] MEDS ORDERED: Non-Formulary Medication 1 Each (Bicalutamide [Casodex] 50 MG Tablet) PO SCH (09:00)
[2023-05-08] MEDS ORDERED: Enoxaparin 40 MG/0.4 ML Syringe SUBCUT SCH (09:00)
[2023-05-08] MEDS: Rosuvastatin 10 MG Tab PO SCH (09:06)
[2023-05-08] MEDS: Enoxaparin 40 MG/0.4 ML Syringe SUBCUT SCH (09:06)
[2023-05-08] MEDS: Famotidine 20 MG Tab PO SCH (09:07)
[2023-05-08] MEDS: Finasteride 5 MG Tab PO SCH (09:07)
[2023-05-08] MEDS: Acetaminophen/HYDROcodone 325-5 MG Tab PO PRN (10:40)
[2023-05-08 10:59] LABS: APPEARANCE,URINE CLEAR (CLEAR); BILIRUBIN,URINE NEGATIVE (NEGATIVE); COLOR,URINE YELLOW (YELLOW); GLUCOSE,URINE NEGATIVE (NEGATIVE); KETONES,URINE NEGATIVE (NEGATIVE); LEUKOCYTE ESTERASE,URINE TRACE (NEGATIVE); NITRITE,URINE NEGATIVE (NEGATIVE); OCCULT BLOOD,URINE SMALL (NEGATIVE); PROTEIN,URINE NEGATIVE (NEGATIVE); UROBILINOGEN,URINE 0.2 E.U./dL (0.2-1.0)
[2023-05-08 11:07] LABS: BACTERIA,URINE RARE /HPF (NONE TO FEW); EPITHELIAL CELLS,URINE RARE /LPF; WBC,URINE 0-5 /HPF (0-5)
[2023-05-08 13:56] LABS: HEMATOCRIT 28.8 % (40.0-52.0); HEMOGLOBIN 9.3 g/dL (13.0-17.0); MEAN CORPUSCULAR HEMOGLOBIN 28.6 pg (27.0-31.0); MEAN CORPUSCULAR HGB CONC 32.3 g/dL (32.0-36.0); MEAN CORPUSCULAR VOLUME 88.6 fL (82.0-92.0); MEAN PLATELET VOLUME 8.2 fL (7.4-10.4); PLATELET COUNT,PLT 233 10^3/uL (150-400); RED BLOOD CELL COUNT 3.25 10^6/uL (4.50-6.00); RED CELL DISTRIBUTION WIDTH 13.1 % (11.5-14.5); WHITE BLOOD CELL COUNT,WBC 9.35 10^3/uL (5.00-10.00)
[2023-05-08] MEDS ORDERED: Metoprolol Succinate 25 MG Tab.ER PO SCH (15:30)
[2023-05-08] MEDS ORDERED: Tamsulosin 0.4 MG Cap.ER PO SCH (21:00)
[2023-05-08] MEDS ORDERED: Aspirin 81 MG Tab.EC PO SCH (21:00)
== END 2023-05-08 16:10 | DRG 552 ==
LOC: KA.ED 18:52 → UNDOADMIN 22:25 → KA.MS 22:25 → UNDODISIN 05-08 16:10
PROVIDERS: ADMIT Hospitalist; ATTEND Family Medicine
PROC: 0T2BX0Z Change Drainage Device in Bladder, External Approach (ICD-10-PCS; principal; 2023-05-07)
DX: S42.035A Nondisplaced fracture of lateral end of left clavicle, initial encounter for closed fracture (principal); S22.020A Wedge compression fracture of second thoracic vertebra, initial encounter for closed fracture; E87.1 Hypo-osmolality and hyponatremia; S13.160A Subluxation of C5/C6 cervical vertebrae, initial encounter; I10 Essential (primary) hypertension; E78.00 Pure hypercholesterolemia, unspecified; J44.9 Chronic obstructive pulmonary disease, unspecified; E11.9 Type 2 diabetes mellitus without complications; I25.10 Atherosclerotic heart disease of native coronary artery without angina pectoris; R29.6 Repeated falls; F17.210 Nicotine dependence, cigarettes, uncomplicated; R39.198 Other difficulties with micturition; R91.1 Solitary pulmonary nodule; I95.1 Orthostatic hypotension; D50.9 Iron deficiency anemia, unspecified; R33.9 Retention of urine, unspecified; Z95.5 Presence of coronary angioplasty implant and graft; Z79.82 Long term (current) use of aspirin; Z79.84 Long term (current) use of oral hypoglycemic drugs; Z79.2 Long term (current) use of antibiotics; Z79.899 Other long term (current) drug therapy; Z85.46 Personal history of malignant neoplasm of prostate; Z99.81 Dependence on supplemental oxygen; W19.XXXA Unspecified fall, initial encounter
CPT/HCPCS: 36415; 51702; 51798; 70450; 71045; 72125; 72128; 72141; 72146; 73000-LT; 80048; 80053; 81001; 85025; 85027; 85610; 87086; 96361; 96374; 96375; 99285-25; A9270-GY; C1758; J1170; J1650; J1885; J7030; Q3014

== ENCOUNTER 2023-06-21 11:10 | Emergency (ER) | payer MEDICARE ==
[2023-06-21 11:40] LABS: BASOPHILS ABSOLUTE AUTO 0.04 10^3/uL (0.00-0.10); BASOPHILS PERCENT AUTO 0.6 % (0.0-1.0); EOSINOPHILS ABSOLUTE AUTO 0.17 10^3/uL (0.10-0.30); EOSINOPHILS PERCENT AUTO 2.5 % (1.0-3.0); HEMOGLOBIN 11.1 g/dL (13.0-17.0); IMMATURE GRAN ABSOLUTE AUTO 0.01 10^3/uL (0.00-0.50); IMMATURE GRAN PERCENT AUTO 0.1 % (0.0-5.0); LYMPHOCYTES ABSOLUTE AUTO 1.51 10^3/uL (1.00-4.00); LYMPHOCYTES PERCENT AUTO 21.9 % (20.0-40.0); MEAN CORPUSCULAR HEMOGLOBIN 27.7 pg (27.0-31.0); MEAN CORPUSCULAR HGB CONC 31.7 g/dL (32.0-36.0); MEAN CORPUSCULAR VOLUME 87.3 fL (82.0-92.0); MEAN PLATELET VOLUME 9.3 fL (7.4-10.4); MONOCYTES ABSOLUTE AUTO 0.67 10^3/uL (0.10-0.80); MONOCYTES PERCENT AUTO 9.7 % (2.0-8.0); NEUTROPHILS ABSOLUTE AUTO 4.51 10^3/uL (2.50-7.00); NEUTROPHILS PERCENT AUTO 65.2 % (50.0-70.0); PLATELET COUNT,PLT 354 10^3/uL (150-400); RED BLOOD CELL COUNT 4.01 10^6/uL (4.50-6.00); RED CELL DISTRIBUTION WIDTH 14.4 % (11.5-14.5); WHITE BLOOD CELL COUNT,WBC 6.91 10^3/uL (5.00-10.00)
[2023-06-21 11:55] LABS: ALBUMIN 3.07 g/dL (3.40-5.00); ANION GAP 17.8 mmol/L (5-15); BILIRUBIN TOTAL 0.4 mg/dL (0.2-1.0); CALCIUM 8.9 mg/dL (8.7-10.3); CARBON DIOXIDE,CO2 23.7 mmol/L (21.0-32.0); CREATININE 0.91 mg/dL (0.51-1.17); EST CRCL DRUG DOSING (CG) 64.27 mL/min; POTASSIUM,K 3.5 mmol/L (3.5-5.1); PROTEIN TOTAL,TP 7.1 g/dL (6.4-8.2)
== END 2023-06-21 13:02 | disposition home or self-care (01) ==
LOC: KA.ED 11:10
DX: S00.81XA Abrasion of other part of head, initial encounter (principal); R55 Syncope and collapse; I10 Essential (primary) hypertension; J44.9 Chronic obstructive pulmonary disease, unspecified; E11.9 Type 2 diabetes mellitus without complications; Z86.16 Personal history of COVID-19; E78.00 Pure hypercholesterolemia, unspecified; Z95.5 Presence of coronary angioplasty implant and graft; Z79.899 Other long term (current) drug therapy; Z79.84 Long term (current) use of oral hypoglycemic drugs; Z79.82 Long term (current) use of aspirin; W18.30XA Fall on same level, unspecified, initial encounter
CPT/HCPCS: 36415; 70450; 80053; 83540; 84484; 85014; 85018; 85025; 99284

== ENCOUNTER 2024-04-29 18:15 | Inpatient (IN) | payer MEDICARE, OTHER ==
[2024-04-29 18:50] LABS: BASOPHILS ABSOLUTE AUTO 0.01 10^3/uL (0.00-0.10); BASOPHILS PERCENT AUTO 0.1 % (0.0-1.0); HEMATOCRIT 34.8 % (40.0-52.0); IMMATURE GRAN ABSOLUTE AUTO 0.09 10^3/uL (0.00-0.04); IMMATURE GRAN PERCENT AUTO 0.6 % (0.0-0.4); LYMPHOCYTES ABSOLUTE AUTO 0.23 10^3/uL (1.00-4.00); LYMPHOCYTES PERCENT AUTO 1.7 % (20.0-40.0); MEAN CORPUSCULAR HEMOGLOBIN 34.7 pg (27.0-31.0); MEAN CORPUSCULAR HGB CONC 34.5 g/dL (32.0-36.0); MEAN CORPUSCULAR VOLUME 100.6 fL (82.0-92.0); MEAN PLATELET VOLUME 8.8 fL (7.4-10.4); MONOCYTES ABSOLUTE AUTO 1.55 10^3/uL (0.10-0.80); MONOCYTES PERCENT AUTO 11.2 % (2.0-8.0); NEUTROPHILS ABSOLUTE AUTO 12.02 10^3/uL (2.50-7.00); NEUTROPHILS PERCENT AUTO 86.4 % (50.0-70.0); PLATELET COUNT,PLT 256 10^3/uL (150-400); RED BLOOD CELL COUNT 3.46 10^6/uL (4.50-6.00); RED CELL DISTRIBUTION WIDTH 13.9 % (11.5-14.5)
[2024-04-29] MEDS: Sodium Chloride 0.9% 1,000 ML IV ONE ×3 (18:59→20:19)
[2024-04-29] MEDS: Ondansetron 4 MG/2 ML SDV IVPUSH ONE (19:00)
[2024-04-29] MEDS: Pantoprazole 40 MG Vial IVPUSH ONE (19:00)
[2024-04-29 19:23] LABS: ALBUMIN 2.57 g/dL (3.40-5.00); ANION GAP 21.2 mmol/L (5-15); BILIRUBIN TOTAL 0.4 mg/dL (0.2-1.0); C-REACTIVE PROTEIN 4.19 mg/dL (0.00-0.50); CARBON DIOXIDE,CO2 15.6 mmol/L (21.0-32.0); EST CRCL DRUG DOSING (CG) 28.33 mL/min; POTASSIUM,K 2.8 mmol/L (3.5-5.1); PROTEIN TOTAL,TP 6.4 g/dL (6.4-8.2)
[2024-04-29 19:35] LABS: MAGNESIUM 0.7 mg/dL (1.8-2.4)
[2024-04-29 19:36] LABS: CREATININE 2.18 mg/dL (0.51-1.17)
[2024-04-29] MEDS ORDERED: Sodium Chloride 0.9% 50 ML ONE (19:42)
[2024-04-29] MEDS: Magnesium Sulfate/Water Premix 4 GM in Premix Bag 1 BAG IV ONE (19:51)
[2024-04-29] MEDS: Potassium Chloride 10 MEQ Tab.ER PO ONE (19:53)
[2024-04-29] MEDS: Loperamide 2 MG Cap PO ONE (20:02)
[2024-04-29 20:16] LABS: APPEARANCE,URINE CLOUDY (CLEAR); BILIRUBIN,URINE SMALL (NEGATIVE); COLOR,URINE YELLOW (YELLOW); GLUCOSE,URINE NEGATIVE (NEGATIVE); KETONES,URINE TRACE mg/dL (NEGATIVE); LEUKOCYTE ESTERASE,URINE NEGATIVE (NEGATIVE); NITRITE,URINE NEGATIVE (NEGATIVE); OCCULT BLOOD,URINE NEGATIVE (NEGATIVE); PH,URINE 5.5 (5.0-9.0); PROTEIN,URINE 30 mg/dL (NEGATIVE); UROBILINOGEN,URINE 0.2 E.U./dL (0.2-1.0)
[2024-04-29 20:26] LABS: BACTERIA,URINE FEW /HPF (NONE TO FEW); EPITHELIAL CELLS,URINE RARE /LPF; GRANULAR CASTS,URINE FEW; RBC,URINE 0-5 /HPF (0-5); WBC,URINE 0-5 /HPF (0-5)
[2024-04-29 20:27] LABS: AMORPHOUS SEDIMENT,URINE FEW /HPF (0/HPF)
[2024-04-29] MEDS ORDERED: Loperamide 2 MG Cap PO PRN (21:50)
[2024-04-29] MEDS ORDERED: Glucagon,Human Recombinant 1 MG Vial IM PRN ×2 (21:52→22:00)
[2024-04-29] MEDS ORDERED: 50% Dextrose in Water 50 ML Syringe IVPUSH PRN ×2 (21:52→22:00)
[2024-04-29] MEDS ORDERED: Acetaminophen 325 MG Tab PO PRN (21:52)
[2024-04-29] MEDS ORDERED: oxyCODONE 5 MG Tab PO PRN (22:13)
[2024-04-29] MEDS: Magnesium Sulfate/Water Premix 50 ML ONE (22:24)
[2024-04-29] MEDS: Azithromycin 250 MG Tab PO SCH (22:41)
[2024-04-29] MEDS: Gabapentin 300 MG Cap PO SCH (22:43)
[2024-04-29] MEDS: Melatonin 3 MG Tab PO SCH (22:43)
[2024-04-30] MEDS: NS with KCl 40mEq 1,000 ML IV SCH (01:53)
[2024-04-30] MEDS: Insulin Lispro 100 Unit/ML 3 ML KwikPen SUBCUT SCH (07:50)
[2024-04-30 07:51] LABS: BASOPHILS ABSOLUTE AUTO 0.01 10^3/uL (0.00-0.10); BASOPHILS PERCENT AUTO 0.1 % (0.0-1.0); HEMATOCRIT 30.9 % (40.0-52.0); HEMOGLOBIN 10.8 g/dL (13.0-17.0); IMMATURE GRAN ABSOLUTE AUTO 0.03 10^3/uL (0.00-0.04); IMMATURE GRAN PERCENT AUTO 0.3 % (0.0-0.4); LYMPHOCYTES PERCENT AUTO 2.7 % (20.0-40.0); MEAN CORPUSCULAR HEMOGLOBIN 34.6 pg (27.0-31.0); MEAN PLATELET VOLUME 8.7 fL (7.4-10.4); MONOCYTES ABSOLUTE AUTO 1.27 10^3/uL (0.10-0.80); MONOCYTES PERCENT AUTO 11.4 % (2.0-8.0); NEUTROPHILS ABSOLUTE AUTO 9.54 10^3/uL (2.50-7.00); NEUTROPHILS PERCENT AUTO 85.5 % (50.0-70.0); PLATELET COUNT,PLT 235 10^3/uL (150-400); RED BLOOD CELL COUNT 3.12 10^6/uL (4.50-6.00); RED CELL DISTRIBUTION WIDTH 13.7 % (11.5-14.5); WHITE BLOOD CELL COUNT,WBC 11.15 10^3/uL (5.00-10.00)
[2024-04-30 08:12] LABS: ALBUMIN 2.08 g/dL (3.40-5.00); ANION GAP 15.9 mmol/L (5-15); BILIRUBIN TOTAL 0.3 mg/dL (0.2-1.0); CALCIUM 8.3 mg/dL (8.7-10.3); CARBON DIOXIDE,CO2 18.3 mmol/L (21.0-32.0); CREATININE 1.68 mg/dL (0.51-1.17); EST CRCL DRUG DOSING (CG) 36.76 mL/min; POTASSIUM,K 3.2 mmol/L (3.5-5.1); PROTEIN TOTAL,TP 5.4 g/dL (6.4-8.2)
[2024-04-30] MEDS ORDERED: Gabapentin 300 MG Cap PO SCH (09:00)
[2024-04-30] MEDS: Aspirin 81 MG Tab.EC PO SCH (10:00)
[2024-04-30] MEDS: Potassium Chloride 20 MEQ Tab.ER PO SCH (10:00)
[2024-04-30] MEDS: Cholecalciferol (Vitamin D3) 25 MCG Tab PO SCH (10:00)
[2024-04-30] MEDS: Vitamin B Complex Tab PO SCH (10:01)
[2024-04-30] MEDS: Loperamide 2 MG Cap PO SCH (10:01)
[2024-04-30] MEDS: Finasteride 5 MG Tab PO SCH (10:01)
[2024-04-30] MEDS: Enoxaparin 40 MG/0.4 ML Syringe SUBCUT SCH (10:02)
[2024-04-30] MEDS: Psyllium Husk Powder Sugar Free 5.85 GM Packet PO SCH (10:05)
[2024-04-30] MEDS: methylPREDNISolone Sodium Succinate 125 MG/2 ML SDV IVPUSH SCH (10:08)
[2024-04-30] MEDS ORDERED: Zinc Oxide 20% Oint 56.7 GM Tube TOP PRN (10:09)
[2024-04-30] MEDS: Tamsulosin 0.4 MG Cap.ER PO SCH (20:55)
[2024-04-30] MEDS ORDERED: Melatonin 3 MG Tab PO SCH (21:00)
[2024-04-30] MEDS: Ondansetron 4 MG/2 ML SDV IV PRN (22:05)
[2024-05-01 07:43] LABS: ANION GAP 14.8 mmol/L (5-15); CALCIUM 8.1 mg/dL (8.7-10.3); CARBON DIOXIDE,CO2 18.9 mmol/L (21.0-32.0); CREATININE 1.41 mg/dL (0.51-1.17); EST CRCL DRUG DOSING (CG) 43.79 mL/min; POTASSIUM,K 4.7 mmol/L (3.5-5.1)
[2024-05-01] MEDS: methylPREDNISolone Sodium Succinate 125 MG/2 ML SDV IVPUSH SCH (09:00)
[2024-05-01] MEDS: Sodium Chloride 0.9% 1,000 ML IV SCH (09:13)
[2024-05-01] MEDS ORDERED: Loperamide 2 MG Cap PO PRN (11:34)
[2024-05-02 07:57] LABS: EOSINOPHILS ABSOLUTE AUTO 0.01 10^3/uL (0.10-0.30); EOSINOPHILS PERCENT AUTO 0.1 % (1.0-3.0); HEMATOCRIT 26.9 % (40.0-52.0); HEMOGLOBIN 9.1 g/dL (13.0-17.0); IMMATURE GRAN ABSOLUTE AUTO 0.03 10^3/uL (0.00-0.04); IMMATURE GRAN PERCENT AUTO 0.3 % (0.0-0.4); LYMPHOCYTES ABSOLUTE AUTO 0.17 10^3/uL (1.00-4.00); LYMPHOCYTES PERCENT AUTO 1.5 % (20.0-40.0); MEAN CORPUSCULAR HEMOGLOBIN 34.3 pg (27.0-31.0); MEAN CORPUSCULAR HGB CONC 33.8 g/dL (32.0-36.0); MEAN CORPUSCULAR VOLUME 101.5 fL (82.0-92.0); MEAN PLATELET VOLUME 9.1 fL (7.4-10.4); MONOCYTES ABSOLUTE AUTO 0.38 10^3/uL (0.10-0.80); MONOCYTES PERCENT AUTO 3.5 % (2.0-8.0); NEUTROPHILS ABSOLUTE AUTO 10.42 10^3/uL (2.50-7.00); PLATELET COUNT,PLT 226 10^3/uL (150-400); RED BLOOD CELL COUNT 2.65 10^6/uL (4.50-6.00); RED CELL DISTRIBUTION WIDTH 14.4 % (11.5-14.5); WHITE BLOOD CELL COUNT,WBC 11.01 10^3/uL (5.00-10.00)
[2024-05-02 08:03] LABS: ANION GAP 14.8 mmol/L (5-15); CALCIUM 7.7 mg/dL (8.7-10.3); CARBON DIOXIDE,CO2 20.3 mmol/L (21.0-32.0); CREATININE 1.35 mg/dL (0.51-1.17); EST CRCL DRUG DOSING (CG) 45.74 mL/min; POTASSIUM,K 4.1 mmol/L (3.5-5.1)
[2024-05-02 08:22] LABS: NEUTROPHILS PERCENT AUTO 94.6 % (50.0-70.0)
[2024-05-02] MEDS: Magnesium Sulfate/Water Premix 2 GM in Premix Bag 1 BAG IV ONE (10:19)
[2024-05-02] MEDS: methylPREDNISolone Sodium Succinate 125 MG/2 ML SDV IVPUSH SCH (10:19)
[2024-05-02] MEDS: Sodium Chloride 0.9% 20 ML SDV FLUSH ONE (14:42)
[2024-05-03] MEDS ORDERED: methylPREDNISolone Sodium Succinate 125 MG/2 ML SDV IVPUSH SCH (10:00)
== END 2024-05-02 15:29 | disposition home or self-care (01) | DRG 683 ==
LOC: KA.ED 18:15 → KA.MS 20:16 → UNDOADMIN 20:16 → KA.MS 20:32
PROVIDERS: ADMIT Family Medicine; ATTEND Family Medicine
DX: N17.9 Acute kidney failure, unspecified (principal); C34.90 Malignant neoplasm of unspecified part of unspecified bronchus or lung; K90.9 Intestinal malabsorption, unspecified; E87.20 Acidosis, unspecified; E86.0 Dehydration; I25.10 Atherosclerotic heart disease of native coronary artery without angina pectoris; E11.9 Type 2 diabetes mellitus without complications; E87.6 Hypokalemia; E83.42 Hypomagnesemia; E78.00 Pure hypercholesterolemia, unspecified; I10 Essential (primary) hypertension; J44.9 Chronic obstructive pulmonary disease, unspecified; N40.0 Benign prostatic hyperplasia without lower urinary tract symptoms; M10.9 Gout, unspecified; F17.210 Nicotine dependence, cigarettes, uncomplicated; F15.90 Other stimulant use, unspecified, uncomplicated; R29.6 Repeated falls; R53.81 Other malaise; T45.1X5A Adverse effect of antineoplastic and immunosuppressive drugs, initial encounter; E88.09 Other disorders of plasma-protein metabolism, not elsewhere classified; Z79.84 Long term (current) use of oral hypoglycemic drugs; Z79.82 Long term (current) use of aspirin; Z95.5 Presence of coronary angioplasty implant and graft; Z87.81 Personal history of (healed) traumatic fracture; Z85.46 Personal history of malignant neoplasm of prostate; Z98.890 Other specified postprocedural states; Z79.60 Long term (current) use of unspecified immunomodulators and immunosuppressants; Z92.3 Personal history of irradiation; Z79.02 Long term (current) use of antithrombotics/antiplatelets; Z79.899 Other long term (current) drug therapy; H54.7 Unspecified visual loss
CPT/HCPCS: 36415; 72125; 80048; 80053; 81001; 82550; 82947; 83605; 83735; 85025; 86140; 87040; 87324; 87449; 93010; 96361; 96365; 96375; 99223-GT; 99232-GT; 99233-GT; 99239-GT; 99284; 99285-25; A9270-GY; J1642; J1650; J1815-GY; J2405; J2470; J2919; J3475; J3480; J7030; Q3014

== ENCOUNTER 2024-08-25 21:27 | Inpatient (IN) | payer MEDICARE, OTHER ==
[2024-08-25] MEDS: Sodium Chloride 0.9% 10 ML Syringe FLUSH PRN (21:45)
[2024-08-25] MEDS: 50% Dextrose in Water 50 ML Syringe IVPUSH ONE (21:49)
[2024-08-25] MEDS: 50% Dextrose in Water 50 ML Syringe ONE (21:53)
[2024-08-25] MEDS: Dextrose 5% in Water 250 ML IV SCH (21:58)
[2024-08-25] MEDS: Dextrose 5% in Water 250 ML ONE (22:11)
[2024-08-25 22:15] LABS: BASOPHILS ABSOLUTE AUTO 0.01 10^3/uL (0.00-0.10); BASOPHILS PERCENT AUTO 0.2 % (0.0-1.0); HEMATOCRIT 30.4 % (40.0-52.0); HEMOGLOBIN 10.3 g/dL (13.0-17.0); IMMATURE GRAN ABSOLUTE AUTO 0.03 10^3/uL (0.00-0.04); IMMATURE GRAN PERCENT AUTO 0.6 % (0.0-0.4); LYMPHOCYTES ABSOLUTE AUTO 0.08 10^3/uL (1.00-4.00); LYMPHOCYTES PERCENT AUTO 1.5 % (20.0-40.0); MEAN CORPUSCULAR HEMOGLOBIN 30.2 pg (27.0-31.0); MEAN CORPUSCULAR HGB CONC 33.9 g/dL (32.0-36.0); MEAN CORPUSCULAR VOLUME 89.1 fL (82.0-92.0); MEAN PLATELET VOLUME 8.6 fL (7.4-10.4); MONOCYTES ABSOLUTE AUTO 0.77 10^3/uL (0.10-0.80); MONOCYTES PERCENT AUTO 14.8 % (2.0-8.0); NEUTROPHILS ABSOLUTE AUTO 4.32 10^3/uL (2.50-7.00); NEUTROPHILS PERCENT AUTO 82.9 % (50.0-70.0); PLATELET COUNT,PLT 183 10^3/uL (150-400); RED BLOOD CELL COUNT 3.41 10^6/uL (4.50-6.00); RED CELL DISTRIBUTION WIDTH 14.6 % (11.5-14.5); WHITE BLOOD CELL COUNT,WBC 5.21 10^3/uL (5.00-10.00)
[2024-08-25 22:30] LABS: ALBUMIN 2.21 g/dL (3.40-5.00); ANION GAP 16.8 mmol/L (5-15); BILIRUBIN TOTAL 0.5 mg/dL (0.2-1.0); CARBON DIOXIDE,CO2 21.6 mmol/L (21.0-32.0); CREATININE 2.07 mg/dL (0.51-1.17); EST CRCL DRUG DOSING (CG) 29.37 mL/min; PHOSPHORUS 4.2 mg/dL (2.6-4.7); POTASSIUM,K 3.4 mmol/L (3.5-5.1); PROTEIN TOTAL,TP 5.5 g/dL (6.4-8.2)
[2024-08-25] MEDS: Sodium Chloride 0.9% 1,000 ML IV ONE (22:44)
[2024-08-25] MEDS: Magnesium Sulfate 2 GM/50 mL 2 GM in Premix Bag 1 BAG IV SCH (22:55)
[2024-08-25] MEDS: MAGNESIUM SULFATE IV ONE (22:55)
[2024-08-25] MEDS: Potassium Chloride 20 MEQ Tab.ER PO ONE (23:31)
[2024-08-26] MEDS ORDERED: Loperamide 2 MG Cap PO PRN ×2 (01:13→10:38)
[2024-08-26] MEDS: Nicotine 7 MG/24 Hr Patch TRDERM SCH (01:55)
[2024-08-26 04:08] LABS: HEMATOCRIT 25.9 % (40.0-52.0); HEMOGLOBIN 8.8 g/dL (13.0-17.0); IMMATURE GRAN ABSOLUTE AUTO 0.02 10^3/uL (0.00-0.04); IMMATURE GRAN PERCENT AUTO 0.5 % (0.0-0.4); LYMPHOCYTES ABSOLUTE AUTO 0.09 10^3/uL (1.00-4.00); LYMPHOCYTES PERCENT AUTO 2.2 % (20.0-40.0); MEAN CORPUSCULAR HEMOGLOBIN 30.6 pg (27.0-31.0); MEAN CORPUSCULAR VOLUME 89.9 fL (82.0-92.0); MEAN PLATELET VOLUME 8.9 fL (7.4-10.4); MONOCYTES ABSOLUTE AUTO 0.51 10^3/uL (0.10-0.80); MONOCYTES PERCENT AUTO 12.4 % (2.0-8.0); NEUTROPHILS ABSOLUTE AUTO 3.49 10^3/uL (2.50-7.00); NEUTROPHILS PERCENT AUTO 84.9 % (50.0-70.0); PLATELET COUNT,PLT 149 10^3/uL (150-400); RED BLOOD CELL COUNT 2.88 10^6/uL (4.50-6.00); RED CELL DISTRIBUTION WIDTH 14.6 % (11.5-14.5); WHITE BLOOD CELL COUNT,WBC 4.11 10^3/uL (5.00-10.00)
[2024-08-26 04:32] LABS: ANION GAP 13.6 mmol/L (5-15); CALCIUM 7.6 mg/dL (8.7-10.3); CARBON DIOXIDE,CO2 22.5 mmol/L (21.0-32.0); CREATININE 1.85 mg/dL (0.51-1.17); EST CRCL DRUG DOSING (CG) 32.86 mL/min; MAGNESIUM 1.8 mg/dL (1.8-2.4); POTASSIUM,K 3.1 mmol/L (3.5-5.1)
[2024-08-26] MEDS: Pantoprazole 40 MG Tab.CR PO SCH (05:56)
[2024-08-26] MEDS: NS with KCl 40mEq 1,000 ML IV SCH (06:24)
[2024-08-26] MEDS: Potassium Chloride 20 MEQ Tab.ER PO ONE (06:24)
[2024-08-26] MEDS: Aspirin 81 MG Tab.EC PO SCH (08:08)
[2024-08-26] MEDS: Cholecalciferol (Vitamin D3) 25 MCG Tab PO SCH (08:09)
[2024-08-26] MEDS: Vitamin B Complex Tab PO SCH (08:09)
[2024-08-26] MEDS: Rosuvastatin 10 MG Tab PO SCH (08:09)
[2024-08-26] MEDS: Potassium Chloride 20 MEQ Tab.ER PO SCH (08:09)
[2024-08-26] MEDS: Finasteride 5 MG Tab PO SCH (08:09)
[2024-08-26] MEDS ORDERED: metFORMIN 500 MG Tab PO SCH (09:00)
[2024-08-26] MEDS: Gabapentin 300 MG Cap PO SCH (09:19)
[2024-08-26] MEDS: Acetaminophen 325 MG Tab PO PRN (09:20)
[2024-08-26] MEDS: VANCOmycin 125 MG Cap PO SCH (10:34)
[2024-08-26] MEDS: Magnesium Oxide 500 MG Tab PO SCH (10:59)
[2024-08-26] MEDS: MAGNESIUM OXIDE 200 MG PO SCH (10:59)
[2024-08-26] MEDS: Nicotine 14 MG/24 Hr Patch TRDERM SCH (13:47)
[2024-08-26 16:21] LABS: ALBUMIN 1.81 g/dL (3.40-5.00); ANION GAP 13.3 mmol/L (5-15); CALCIUM 7.8 mg/dL (8.7-10.3); CARBON DIOXIDE,CO2 22.3 mmol/L (21.0-32.0); CREATININE 1.62 mg/dL (0.51-1.17); EST CRCL DRUG DOSING (CG) 37.53 mL/min; PHOSPHORUS 2.7 mg/dL (2.6-4.7); POTASSIUM,K 4.6 mmol/L (3.5-5.1)
[2024-08-26] MEDS: Tamsulosin 0.4 MG Cap.ER PO SCH (21:28)
[2024-08-26] MEDS: Melatonin 3 MG Tab PO SCH (21:28)
[2024-08-27] MEDS: diphenhydrAMINE 25 MG Cap PO PRN (02:23)
[2024-08-27] MEDS: Ondansetron 4 MG/2 ML SDV IV PRN (08:14)
[2024-08-27 08:29] LABS: HEMATOCRIT 29.3 % (40.0-52.0); LYMPHOCYTES PERCENT AUTO 4.4 % (20.0-40.0); MEAN CORPUSCULAR HEMOGLOBIN 30.6 pg (27.0-31.0); MEAN CORPUSCULAR HGB CONC 34.1 g/dL (32.0-36.0); MEAN CORPUSCULAR VOLUME 89.6 fL (82.0-92.0); MEAN PLATELET VOLUME 8.5 fL (7.4-10.4); MONOCYTES ABSOLUTE AUTO 0.34 10^3/uL (0.10-0.80); MONOCYTES PERCENT AUTO 14.8 % (2.0-8.0); NEUTROPHILS ABSOLUTE AUTO 1.85 10^3/uL (2.50-7.00); NEUTROPHILS PERCENT AUTO 80.8 % (50.0-70.0); PLATELET COUNT,PLT 190 10^3/uL (150-400); RED BLOOD CELL COUNT 3.27 10^6/uL (4.50-6.00); RED CELL DISTRIBUTION WIDTH 15.4 % (11.5-14.5); WHITE BLOOD CELL COUNT,WBC 2.29 10^3/uL (5.00-10.00)
[2024-08-27 08:42] LABS: ANION GAP 11.2 mmol/L (5-15); CREATININE 1.39 mg/dL (0.51-1.17); EST CRCL DRUG DOSING (CG) 43.74 mL/min; POTASSIUM,K 4.2 mmol/L (3.5-5.1)
[2024-08-28] MEDS: Cephalexin 250 MG Cap PO SCH (06:18)
[2024-08-28 07:46] LABS: BASOPHILS ABSOLUTE AUTO 0.01 10^3/uL (0.00-0.10); BASOPHILS PERCENT AUTO 0.3 % (0.0-1.0); HEMATOCRIT 31.5 % (40.0-52.0); HEMOGLOBIN 10.6 g/dL (13.0-17.0); IMMATURE GRAN ABSOLUTE AUTO 0.01 10^3/uL (0.00-0.04); IMMATURE GRAN PERCENT AUTO 0.3 % (0.0-0.4); LYMPHOCYTES ABSOLUTE AUTO 0.14 10^3/uL (1.00-4.00); LYMPHOCYTES PERCENT AUTO 4.4 % (20.0-40.0); MEAN CORPUSCULAR HEMOGLOBIN 30.3 pg (27.0-31.0); MEAN CORPUSCULAR HGB CONC 33.7 g/dL (32.0-36.0); MEAN PLATELET VOLUME 8.5 fL (7.4-10.4); MONOCYTES ABSOLUTE AUTO 0.39 10^3/uL (0.10-0.80); MONOCYTES PERCENT AUTO 12.3 % (2.0-8.0); NEUTROPHILS ABSOLUTE AUTO 2.62 10^3/uL (2.50-7.00); NEUTROPHILS PERCENT AUTO 82.7 % (50.0-70.0); PLATELET COUNT,PLT 189 10^3/uL (150-400); RED CELL DISTRIBUTION WIDTH 15.5 % (11.5-14.5); WHITE BLOOD CELL COUNT,WBC 3.17 10^3/uL (5.00-10.00)
[2024-08-28 08:03] LABS: ANION GAP 10.2 mmol/L (5-15); CALCIUM 8.4 mg/dL (8.7-10.3); CARBON DIOXIDE,CO2 25.3 mmol/L (21.0-32.0); CREATININE 1.36 mg/dL (0.51-1.17); EST CRCL DRUG DOSING (CG) 44.71 mL/min; POTASSIUM,K 4.5 mmol/L (3.5-5.1)
[2024-08-28] MEDS ORDERED: Temazepam 15 MG Cap PO PRN (09:49)
[2024-08-28] MEDS ORDERED: cefTRIAXone 1 GM in Sodium Chloride 0.9% 50 ML IV SCH (10:00)
[2024-08-28] MEDS: cefTRIAXone 1 GM Vial IV SCH (11:14)
[2024-08-28] MEDS: Potassium Chloride 20 MEQ Tab.ER ONE (20:56)
[2024-08-29] MEDS ORDERED: Naloxone 0.4 MG/ML SDV IVPUSH PRN (02:23)
[2024-08-29] MEDS: Morphine 2 MG/ML SYRINGE IVPUSH ONE (02:28)
[2024-08-29 07:35] LABS: EOSINOPHILS ABSOLUTE AUTO 0.02 10^3/uL (0.10-0.30); EOSINOPHILS PERCENT AUTO 0.6 % (1.0-3.0); HEMATOCRIT 28.1 % (40.0-52.0); HEMOGLOBIN 9.1 g/dL (13.0-17.0); LYMPHOCYTES ABSOLUTE AUTO 0.14 10^3/uL (1.00-4.00); LYMPHOCYTES PERCENT AUTO 4.1 % (20.0-40.0); MEAN CORPUSCULAR HEMOGLOBIN 29.8 pg (27.0-31.0); MEAN CORPUSCULAR HGB CONC 32.4 g/dL (32.0-36.0); MEAN CORPUSCULAR VOLUME 92.1 fL (82.0-92.0); MEAN PLATELET VOLUME 8.5 fL (7.4-10.4); MONOCYTES ABSOLUTE AUTO 0.49 10^3/uL (0.10-0.80); MONOCYTES PERCENT AUTO 14.3 % (2.0-8.0); NEUTROPHILS ABSOLUTE AUTO 2.78 10^3/uL (2.50-7.00); PLATELET COUNT,PLT 146 10^3/uL (150-400); RED BLOOD CELL COUNT 3.05 10^6/uL (4.50-6.00); RED CELL DISTRIBUTION WIDTH 15.7 % (11.5-14.5); WHITE BLOOD CELL COUNT,WBC 3.43 10^3/uL (5.00-10.00)
[2024-08-29 07:49] LABS: ANION GAP 10.8 mmol/L (5-15); CARBON DIOXIDE,CO2 24.8 mmol/L (21.0-32.0); CREATININE 1.1 mg/dL (0.51-1.17); EST CRCL DRUG DOSING (CG) 55.27 mL/min; POTASSIUM,K 4.6 mmol/L (3.5-5.1)
[2024-08-29] MEDS: Morphine 2 MG/ML SYRINGE IVPUSH PRN (11:11)
[2024-08-29] MEDS ORDERED: 50% Dextrose in Water 50 ML Syringe IVPUSH PRN (11:58)
[2024-08-30 07:28] LABS: BASOPHILS ABSOLUTE AUTO 0.01 10^3/uL (0.00-0.10); BASOPHILS PERCENT AUTO 0.2 % (0.0-1.0); EOSINOPHILS ABSOLUTE AUTO 0.05 10^3/uL (0.10-0.30); EOSINOPHILS PERCENT AUTO 1.1 % (1.0-3.0); HEMATOCRIT 28.5 % (40.0-52.0); HEMOGLOBIN 9.1 g/dL (13.0-17.0); IMMATURE GRAN ABSOLUTE AUTO 0.03 10^3/uL (0.00-0.04); IMMATURE GRAN PERCENT AUTO 0.6 % (0.0-0.4); LYMPHOCYTES ABSOLUTE AUTO 0.23 10^3/uL (1.00-4.00); LYMPHOCYTES PERCENT AUTO 4.9 % (20.0-40.0); MEAN CORPUSCULAR HEMOGLOBIN 30.2 pg (27.0-31.0); MEAN CORPUSCULAR HGB CONC 31.9 g/dL (32.0-36.0); MEAN CORPUSCULAR VOLUME 94.7 fL (82.0-92.0); MEAN PLATELET VOLUME 8.5 fL (7.4-10.4); MONOCYTES ABSOLUTE AUTO 0.68 10^3/uL (0.10-0.80); MONOCYTES PERCENT AUTO 14.5 % (2.0-8.0); NEUTROPHILS ABSOLUTE AUTO 3.69 10^3/uL (2.50-7.00); NEUTROPHILS PERCENT AUTO 78.7 % (50.0-70.0); PLATELET COUNT,PLT 160 10^3/uL (150-400); RED BLOOD CELL COUNT 3.01 10^6/uL (4.50-6.00); RED CELL DISTRIBUTION WIDTH 16.2 % (11.5-14.5); WHITE BLOOD CELL COUNT,WBC 4.69 10^3/uL (5.00-10.00)
[2024-08-30 07:41] LABS: ANION GAP 7.9 mmol/L (5-15); CARBON DIOXIDE,CO2 28.3 mmol/L (21.0-32.0); CREATININE 0.93 mg/dL (0.51-1.17); EST CRCL DRUG DOSING (CG) 65.38 mL/min; POTASSIUM,K 5.2 mmol/L (3.5-5.1)
[2024-08-30] MEDS ORDERED: Piperacillin/Tazobactam 4.5 GM in Sodium Chloride 0.9% 100 ML IV SCH (10:00)
[2024-08-30] MEDS: oxyCODONE 5 MG Tab PO PRN (10:23)
[2024-08-30] MEDS: Sodium Chloride 0.9% 100 ML IV SCH (10:23)
[2024-08-31 07:32] LABS: BASOPHILS ABSOLUTE AUTO 0.01 10^3/uL (0.00-0.10); BASOPHILS PERCENT AUTO 0.2 % (0.0-1.0); EOSINOPHILS ABSOLUTE AUTO 0.07 10^3/uL (0.10-0.30); EOSINOPHILS PERCENT AUTO 1.2 % (1.0-3.0); HEMOGLOBIN 9.5 g/dL (13.0-17.0); IMMATURE GRAN ABSOLUTE AUTO 0.03 10^3/uL (0.00-0.04); IMMATURE GRAN PERCENT AUTO 0.5 % (0.0-0.4); LYMPHOCYTES ABSOLUTE AUTO 0.24 10^3/uL (1.00-4.00); LYMPHOCYTES PERCENT AUTO 4.1 % (20.0-40.0); MEAN CORPUSCULAR HEMOGLOBIN 30.6 pg (27.0-31.0); MEAN CORPUSCULAR HGB CONC 32.8 g/dL (32.0-36.0); MEAN CORPUSCULAR VOLUME 93.5 fL (82.0-92.0); MEAN PLATELET VOLUME 8.6 fL (7.4-10.4); MONOCYTES PERCENT AUTO 13.7 % (2.0-8.0); NEUTROPHILS ABSOLUTE AUTO 4.69 10^3/uL (2.50-7.00); NEUTROPHILS PERCENT AUTO 80.3 % (50.0-70.0); PLATELET COUNT,PLT 157 10^3/uL (150-400); WHITE BLOOD CELL COUNT,WBC 5.84 10^3/uL (5.00-10.00)
[2024-08-31] MEDS: Polyethylene Glycol 3350 Powder 17 GM Packet PO SCH (08:34)
[2024-08-31] MEDS: oxyCODONE 5 MG Tab PO SCH (10:01)
[2024-09-01] MEDS: HYDROmorphone 2 MG Tab PO SCH (10:53)
[2024-09-01] MEDS: Furosemide 40 MG/4 ML VIAL IVPUSH ONE (19:51)
[2024-09-02] MEDS: Furosemide 40 MG/4 ML VIAL IVPUSH SCH (10:24)
[2024-09-03 07:34] LABS: CALCIUM 7.1 mg/dL (8.7-10.3); CARBON DIOXIDE,CO2 28.9 mmol/L (21.0-32.0); CREATININE 0.86 mg/dL (0.51-1.17); EST CRCL DRUG DOSING (CG) 70.7 mL/min; POTASSIUM,K 2.9 mmol/L (3.5-5.1)
[2024-09-03] MEDS: Acetaminophen 500 MG Tab PO SCH (10:08)
[2024-09-03] MEDS: Ketorolac 30 MG/ML SDV IVPUSH ONE (10:08)
[2024-09-03] MEDS: Potassium Chloride 20 MEQ Tab.ER PO ONE (10:08)
[2024-09-03] MEDS: Methocarbamol 500 MG Tab PO SCH (10:09)
[2024-09-03] MEDS: Sodium Chloride 0.9% 20 ML SDV FLUSH PRN (12:58)
== END 2024-09-03 13:40 | DRG 371 ==
LOC: KA.ED 21:27 → KA.MS 23:20
PROVIDERS: ADMIT Internal Medicine; ATTEND Internal Medicine
DX: A04.72 Enterocolitis due to Clostridium difficile, not specified as recurrent (principal); E43 Unspecified severe protein-calorie malnutrition; M62.82 Rhabdomyolysis; J96.11 Chronic respiratory failure with hypoxia; L03.115 Cellulitis of right lower limb; R79.89 Other specified abnormal findings of blood chemistry; C34.90 Malignant neoplasm of unspecified part of unspecified bronchus or lung; E22.2 Syndrome of inappropriate secretion of antidiuretic hormone; N17.9 Acute kidney failure, unspecified; E11.649 Type 2 diabetes mellitus with hypoglycemia without coma; H54.7 Unspecified visual loss; E78.00 Pure hypercholesterolemia, unspecified; D50.9 Iron deficiency anemia, unspecified; K59.09 Other constipation; H91.90 Unspecified hearing loss, unspecified ear; R29.6 Repeated falls; R53.81 Other malaise; E88.09 Other disorders of plasma-protein metabolism, not elsewhere classified; G47.00 Insomnia, unspecified; E87.5 Hyperkalemia; R60.1 Generalized edema; E83.42 Hypomagnesemia; E87.6 Hypokalemia; N40.0 Benign prostatic hyperplasia without lower urinary tract symptoms; I10 Essential (primary) hypertension; I25.10 Atherosclerotic heart disease of native coronary artery without angina pectoris; J44.9 Chronic obstructive pulmonary disease, unspecified; Z79.84 Long term (current) use of oral hypoglycemic drugs; Z79.899 Other long term (current) drug therapy; Z79.82 Long term (current) use of aspirin; Z95.5 Presence of coronary angioplasty implant and graft; Z87.81 Personal history of (healed) traumatic fracture; Z85.46 Personal history of malignant neoplasm of prostate; Z98.890 Other specified postprocedural states; Z85.118 Personal history of other malignant neoplasm of bronchus and lung; Z68.28 Body mass index [BMI] 28.0-28.9, adult
CPT/HCPCS: 70450; 71101; 72170; 80053; 82550; 82947 ×3; 83605; 83735; 83880; 84100; 84484; 85025; 93010; 96361; 96374; 96375; 99284; 99285; J3475; J7030; J7060; 36415; 74018; 74176; 80048; 80069; 92610-GN; 93005; 97110-GO; 97535-GO; A9270-GY; J0696; J1642; J1885; J1938; J2270; J2405; J3480; J3490; Q3014